=== PATIENT | male | born 1995 | race Two or more races ===

== ENCOUNTER 2021-11-21 21:29 | Emergency (ER) | payer OTHER ==
[~2021-11-21] VITALS: Ht 188 cm; Wt 86.2 kg
[2021-11-22 00:22] VITALS: BP 132/84
[2021-11-22] MEDS ORDERED: ONDANSETRON ODT 4 MG TAB PO ONE (02:30)
[2021-11-22] MEDS ORDERED: KETOROLAC TROMETH 30 MG/ML 1ML VIAL IM ONE (04:45)
== END 2021-11-22 08:22 | disposition home or self-care (01) ==
LOC: ER 21:36
DX: S06.0X0A Concussion without loss of consciousness, initial encounter (principal); S30.0XXA Contusion of lower back and pelvis, initial encounter; I10 Essential (primary) hypertension; V86.56XA Driver of dirt bike or motor/cross bike injured in nontraffic accident, initial encounter; Y93.89 Activity, other specified; Y92.89 Other specified places as the place of occurrence of the external cause; Y99.8 Other external cause status
CPT/HCPCS: 70450; 72125; 74176; 96372; 99284; J1885; Q0162